=== PATIENT | female | born 1985 | race African-American/Black ===

== ENCOUNTER 2017-11-24 10:30 | Emergency (ER) | payer SELFPAY ==
[2017-11-24] MEDS ORDERED: Sodium Chloride 0.9% 1,000 ML IV ONE (10:52)
[2017-11-24] MEDS ORDERED: Ondansetron 4 MG/2 ML SDV IVPUSH ONE (10:52)
[2017-11-24] MEDS ORDERED: Ketorolac 30 MG/ML SDV IVPUSH ONE (10:52)
[2017-11-24] MEDS ORDERED: Alum Hydrox/Mag Hydrox/Simeth 15 ML, Lidocaine 2% 5 ML PO ONE ×2 (10:55)
--- NOTE | 2017-11-24 11:01 | EDM.PDOC ---
<Farshad Dang E - Last Filed: 11/24/17 12:07> ED HPI GENERAL MEDICAL PROBLEM - General Chief Complaint: Abdominal Pain Stated Complaint: ABDOMINAL PAIN Time Seen by Provider: 11/24/17 10:34 Source of Information: Reports: Patient History Limitations: Reports: No Limitations - History of Present Illness INITIAL COMMENTS - FREE TEXT/NARRATIVE: HISTORY AND PHYSICAL: History of present illness: Patient is a 32-year-old female who presents to the emergency room with complaints of mid abdominal pain that radiates to the epigastrium and wraps around both flanks x 2 days. She states that the pain is described as a burning and sharp discomfort. Generalized tenderness throughout. She does have intermittent nausea, vomiting, and subjective fevers. Reports nothing makes the pain better or worse. Not associated with food. Reports normal bowel movements. Denies any chest pain, shortness of breath, dysuria, constipation/diarrhea. LMP: 10/30/2017 Review of systems: As per history of present illness and below otherwise all systems reviewed and negative. Past medical history: As per history of present illness and as reviewed below otherwise noncontributory. Surgical history: As per history of present illness and as reviewed below otherwise noncontributory. Social history: No reported history of drug or alcohol abuse. Family history: As per history of present illness and as reviewed below otherwise noncontributory. Physical exam: General: Nontoxic-appearing 32-year-old -[place] female. Alert and oriented. Well-developed and well-nourished. HEENT: Atraumatic, normocephalic, pupils reactive, negative for conjunctival pallor or scleral icterus, mucous membranes moist, throat clear, neck supple, nontender, trachea midline. Lungs: Clear to auscultation, breath sounds equal bilaterally, chest nontender. Heart: S1S2, regular, negative for clicks, rubs, or JVD. Abdomen: Soft, nondistended, diffuse tenderness in all 4 quadrants. Negative for masses or hepatosplenomegaly. Negative for costovertebral tenderness. Pelvis: Stable nontender. Genitourinary: Deferred. Rectal: Deferred. Extremities: Atraumatic, moves all extremities per self without difficulty or deficits, negative for cords or calf pain. Neurovascular unremarkable. Neuro: Awake, alert, oriented. Cranial nerves II through XII unremarkable. Cerebellum unremarkable. Motor and sensory unremarkable throughout. Exam nonfocal. Patient's H. pylori came back positive. I will treat her with omeprazole, clarithromycin and amoxicillin for 14 days. We discussed the need for follow-up with the general surgeon. She voices understanding and is agreeable to plan of care. She denies any questions at this time. Diagnostics: CBC, CMP, UA, hCG U, amylase, lipase, CT abdomen and pelvis Therapeutics: IV fluids, GI cocktail, Zofran Impression: #1 Epigastric Pain #2 Vomiting #3 Peptic Ulcer (+ H.Pylori) Plan: 1. You tested positive for H.Pylori (Peptic Ulcers). Will treat you with erradication therapy: Omeprozole, clarithromycin and amoxicillin x 14 days. Please take with food to avoid upset stomach. [place] diet (avoid spicy foods, caffienes, etc..) 2. Do not take any NSAIDs, including aspirin, ibuprofen,or Aleve. 3. As we discussed it is important that he follow up with general surgeon in the next 1-2 weeks. Turn to the ED as needed and as discussed. Definitive disposition and diagnosis as appropriate pending reevaluation and review of above. Duration: Day(s): Location: Reports: Abdomen abd pain Pain Score (Numeric/FACES): 10 - Related Data Allergies Allergy/AdvReac Type Severity Reaction Status Date / Time metoclopramide [From Reglan] Allergy Cannot Verified 11/24/17 10:51 Remember Home Meds: Home Meds . [No Known Home Meds] 11/24/17 [History] Past Medical History - Past Health History Medical/Surgical History: Denies Medical/Surgical History Social & Family History - Family History Family Medical History: Noncontributory - Tobacco Use Smoking Status *Q: Never Smoker - Recreational Drug Use Recreational Drug Use: No ED ROS GENERAL - Review of Systems Review Of Systems: ROS reveals no pertinent complaints other than HPI. ED EXAM, GI/ABD - Physical Exam Exam: See Below (See dication) Course - Vital Signs Last Recorded V/S: Last Vital Signs Temp 37.0 C 11/24/17 10:51 Pulse 85 11/24/17 10:51 Resp 18 11/24/17 10:51 BP 119/84 11/24/17 10:51 Pulse Ox 99 11/24/17 10:51 - Orders/Labs/Meds Labs: Laboratory Tests 11/24/17 11/24/17 11/24/17 Range/Units 10:55 10:55 11:07 WBC 5.34 (4.0-11.0) K/uL RBC 5.01 (4.30-5.90) M/uL Hgb 11.9 L (12.0-16.0) g/dL Hct 38.2 (36.0-46.0) % MCV 76.2 L (80.0-98.0) fL MCH 23.8 L (27.0-32.0) pg MCHC 31.2 (31.0-37.0) g/dL RDW Std Deviation 49.8 (28.0-62.0) fl RDW Coeff of Jamie 18 H (11.0-15.0) % Plt Count 209 (150-400) K/uL Add Manual Diff YES Neutrophils % (Manual) 52 (48.0-80.0) % Lymphocytes % (Manual) 39 (16.0-40.0) % Monocytes % (Manual) 9 (0.0-15.0) % Nucleated RBC % 0.0 /100WBC Absolute Seg Neuts 2.8 (1.4-5.7) Lymphocytes # (Manual) 2.1 (0.6-2.4) Monocytes # (Manual) 0.5 (0.0-0.8) Nucleated RBCs # 0 K/uL Sodium (136-146) mmol/L Potassium (3.5-5.1) mmol/L Chloride (98-110) mmol/L Carbon Dioxide (21-31) mmol/L BUN (6.0-23.0) mg/dL Creatinine (0.6-1.5) mg/dL Est Cr Clr Drug Dosing mL/min Estimated GFR (MDRD) ml/min Glucose (60-110) mg/dL Calcium (8.8-10.8) mg/dL Total Bilirubin (0.1-1.5) mg/dL AST (5-40) IU/L ALT (8-54) IU/L Alkaline Phosphatase (40-150) Total Protein (6.0-8.0) g/dL Albumin (3.5-5.0) g/dL Globulin (2.0-3.5) g/dL Albumin/Globulin Ratio (1.3-2.8) Amylase (10-90) U/L Lipase (7-80) U/L Urine Color YELLOW Urine Appearance CLEAR Urine pH 7.0 (5.0-8.0) Ur Specific [place] 1.010 (1.001-1.035) Urine Protein NEGATIVE (NEGATIVE) mg/dL Urine Glucose (UA) NEGATIVE (NEGATIVE) mg/dL Urine Ketones NEGATIVE (NEGATIVE) mg/dL Urine Occult Blood NEGATIVE (NEGATIVE) Urine Nitrite NEGATIVE (NEGATIVE) Urine Bilirubin NEGATIVE (NEGATIVE) Urine Urobilinogen 0.2 (<2.0) EU/dL Ur Leukocyte Esterase NEGATIVE (NEGATIVE) Urine RBC NONE SEEN (0-2/HPF) Urine WBC 0-2 (0-5/HPF) Ur Epithelial Cells OCCASIONAL (NONE-FEW) Amorphous Sediment NOT SEEN (NEGATIVE) Urine Bacteria NOT SEEN (NEGATIVE) Urine Mucus NOT SEEN (NONE-MOD) Urine HCG, Qual NEGATIVE (NEGATIVE) H. pylori IgG Antibody (NEG) 11/24/17 11/24/17 Range/Units 11:07 11:07 WBC (4.0-11.0) K/uL RBC (4.30-5.90) M/uL Hgb (12.0-16.0) g/dL Hct (36.0-46.0) % MCV (80.0-98.0) fL MCH (27.0-32.0) pg MCHC (31.0-37.0) g/dL RDW Std Deviation (28.0-62.0) fl RDW Coeff of Jamie (11.0-15.0) % Plt Count (150-400) K/uL Add Manual Diff Neutrophils % (Manual) (48.0-80.0) % Lymphocytes % (Manual) (16.0-40.0) % Monocytes % (Manual) (0.0-15.0) % Nucleated RBC % /100WBC Absolute Seg Neuts (1.4-5.7) Lymphocytes # (Manual) (0.6-2.4) Monocytes # (Manual) (0.0-0.8) Nucleated RBCs # K/uL Sodium 137 (136-146) mmol/L Potassium 3.9 (3.5-5.1) mmol/L Chloride 106 (98-110) mmol/L Carbon Dioxide 23 (21-31) mmol/L BUN 9 (6.0-23.0) mg/dL Creatinine 0.8 (0.6-1.5) mg/dL Est Cr Clr Drug Dosing 111.79 mL/min Estimated GFR (MDRD) > 60.0 ml/min Glucose 110 (60-110) mg/dL Calcium 9.1 (8.8-10.8) mg/dL Total Bilirubin 1.4 (0.1-1.5) mg/dL AST 25 (5-40) IU/L ALT 33 (8-54) IU/L Alkaline Phosphatase 55 (40-150) Total Protein 7.9 (6.0-8.0) g/dL Albumin 4.4 (3.5-5.0) g/dL Globulin 3.5 (2.0-3.5) g/dL Albumin/Globulin Ratio 1.3 (1.3-2.8) Amylase 82 (10-90) U/L Lipase 23 (7-80) U/L Urine Color Urine Appearance Urine pH (5.0-8.0) Ur Specific [place] (1.001-1.035) Urine Protein (NEGATIVE) mg/dL Urine Glucose (UA) (NEGATIVE) mg/dL Urine Ketones (NEGATIVE) mg/dL Urine Occult Blood (NEGATIVE) Urine Nitrite (NEGATIVE) Urine Bilirubin (NEGATIVE) Urine Urobilinogen (<2.0) EU/dL Ur Leukocyte Esterase (NEGATIVE) Urine RBC (0-2/HPF) Urine WBC (0-5/HPF) Ur Epithelial Cells (NONE-FEW) Amorphous Sediment (NEGATIVE) Urine Bacteria (NEGATIVE) Urine Mucus (NONE-MOD) Urine HCG, Qual (NEGATIVE) H. pylori IgG Antibody POSITIVE H (NEG) Meds: Medications Discontinued Medications Generic Name Dose Route Start Last Admin Trade Name Freq PRN Reason Stop Dose Admin Al Hydroxide/Mg Hydroxide 15 0 ml 11/24/17 10:55 11/24/17 11:12 ml/ Lidocaine HCl 5 ml PO 11/24/17 10:56 1 each ONETIME ONE Administration Sodium Chloride 1,000 mls @ 999 mls/hr 11/24/17 10:52 11/24/17 11:12 Normal Saline IV 11/24/17 11:52 999 mls/hr STAT ONE Administration Iopamidol 90 ml 11/24/17 12:15 11/24/17 12:28 Isovue Multipack-370 (76%) IVPUSH 11/24/17 12:16 90 ml ONETIME STA Administration Ketorolac Tromethamine 30 mg 11/24/17 10:52 11/24/17 11:12 Toradol IVPUSH 11/24/17 10:53 Not Given ONETIME ONE Ondansetron HCl 4 mg 11/24/17 10:52 11/24/17 11:12 Zofran IVPUSH 11/24/17 10:53 4 mg ONETIME ONE Administration Departure - Departure Time of Disposition: 12:07 Disposition: Home, Self-Care 01 Clinical Impression: Peptic ulcer Vomiting Qualifiers: Vomiting type: unspecified Vomiting Intractability: unspecified Nausea presence : with nausea Qualified Code(s): R11.2 - Nausea with vomiting, unspecified - Discharge Information Referrals: PCP,None [Primary Care Provider] - Forms: ED Department Discharge Additional Instructions: My general discharge The following information is given to patients seen in the emergency department who are being discharged to home. This information is to outline your options for follow-up care. We provide all patients seen in our emergency department with a follow-up referral. The need for follow-up, as well as the timing and circumstances, are variable depending upon the specifics of your emergency department visit. If you don't have a primary care physician on staff, we will provide you with a referral. We always advise you to contact your personal physician following an emergency department visit to inform them of the circumstance of the visit and for follow-up with them and/or the need for any referrals to a consulting specialist. The emergency department will also refer you to a specialist when appropriate. This referral assures that you have the opportunity for follow-up care with a specialist. All of these measure are taken in an effort to provide you with optimal care, which includes your follow-up. Under all circumstances we always encourage you to contact your private physician who remains a resource for coordinating your care. When calling for follow-up care, please make the office aware that this follow-up is from your recent emergency room visit. If for any reason you are refused follow-up, please contact the [facility] Emergency Department at and asked to speak to the emergency department charge nurse. [facility] Specialty Care - General Surgery Professional Building [address] [place] [address], [address] [place] [id number] 1. You tested positive for H.Pylori (Peptic Ulcers). Will treat you with erradication therapy: Omeprozole, clarithromycin and amoxicillin x 14 days. Please take with food to avoid upset stomach. [place] diet (avoid spicy foods, caffienes, etc..). 2. Do not take any NSAIDs, including aspirin, ibuprofen,or Aleve. 3. As we discussed it is important that he follow up with general surgeon in the next 1-2 weeks. Turn to the ED as needed and as discussed. <Aisha Priest - Last Filed: 11/24/17 13:02> ED HPI GENERAL MEDICAL PROBLEM - History of Present Illness INITIAL COMMENTS - FREE TEXT/NARRATIVE: Addendum: The CT scan that you have on your abdomen identified a small sliding hiatal hernia. If you wish to have surgical consultation Please call [facility] Specialty Care - General Surgery Professional [address], [address] [place] [phone] For surgical consultation
[2017-11-24 11:39] LABS: CHLORIDE,CL 106 mmol/L (98-110); SODIUM,NA 137 mmol/L (136-146)
[2017-11-24] MEDS ORDERED: Iopamidol 755 MG/ML 500 ML Multipack Bottle IVPUSH STA (12:15)
--- NOTE | 2017-11-24 12:48 | CT ---
CT scan of the abdomen and pelvis Clinical history: Abdominal pain and heartburn Comparison: No similar Findings: Multiple computed tomographic sections of the abdomen and pelvis were acquired with intrave nous Isovue 370 90 mL Lung bases are clear of significant findings. Upper abdominal images show homogeneous liver normal size spleen and no focal or generalized abnormal ities. Pancreas is within normal limits without mass in gallbladder and bile ducts are nonremarkable. There is suggestion of a possible small sliding hiatal hernia Kidneys adrenals and retroperitoneum are normal. Scanning through the lower abdomen and into the pelvis demonstrates no focal or generalized abnormali ty of bowel. Images of the pelvis show the uterus and adnexa are without significant abnormal findings. There is n o pelvic mass or lymphadenopathy and groins appear normal. Impression: Suggestion of a small sliding hiatal hernia but no other significant abnormal features to extending patient's pain syndrome
== END 2017-11-24 14:01 | disposition home or self-care (01) ==
LOC: MW.ED 10:30 → MERGE 10:30 → MW.ED 14:01
DX: K27.9 Peptic ulcer, site unspecified, unspecified as acute or chronic, without hemorrhage or perforation (principal); B96.81 Helicobacter pylori [H. pylori] as the cause of diseases classified elsewhere; Z88.8 Allergy status to other drugs, medicaments and biological substances
CPT/HCPCS: 36415; 74177; 80053; 81001; 81025; 82150; 83690; 85025; 86677; 96361; 96374; 99284; A9270; J2405; J7040; Q9967; 99283